=== PATIENT | male | born 1940 | race Two or more races ===

== ENCOUNTER 2020-02-22 20:29 | Inpatient (IN) | payer MEDICARE, OTHER ==
[~2020-02-22] VITALS: Ht 182.9 cm; Wt 67.6 kg
[~2020-02-22 20:29] MED LIST: AMLO10TA80 MT; BIMA2.5D4 EACHEYE; BRIM10DR2 EACHEYE; BRIM5DRO6 EACHEYE; CHOL400T31; CLON0.1T14 MT; CLOP-31 MT; FERR236T3 MT; POLY15DR31 EACHEYE
[2020-02-22] MEDS ORDERED: SODIUM CHLORIDE 0.9% 1,000 ML IV ONE (21:30)
[2020-02-22 21:57] LABS: BG BASE EXCESS -3.4 mmol/L (-2.0-2.0); BG CARBOXYHEMOGLOBIN 0.5 % (0.5-1.5); BG FRACTION INSPIRED OXYGEN 21; BG HCO3 ACT 21.3 mmol/L (22.0-26.0); BG METHEMOGLOBIN 0.3 % (0.0-1.5); BG OXYHEMOGLOBIN 94.2 % (94.0-97.0); BG PCO2 37.1 mmHg (35.0-45.0); BG PH 7.376 (7.350-7.450); BG PO2 78.2 mmHg (75.0-100.0); BG SAMPLE SITE LEFT RADIAL; BG VENT MODE ROOM AIR
[2020-02-22 22:41] LABS: HEMATOCRIT. 35.2 % (42.0-52.0); MEAN CORPUSCULAR HEMOGLOBIN 22.8 pg (28.0-32.0); MEAN CORPUSCULAR VOLUME 72.8 fL (80.0-94.0); MEAN PLATELET VOLUME 8.4 fl (7.4-10.4); PLATELET 242 x1000/uL (130-400); RED BLOOD CELL COUNT 4.83 mill/uL (4.7-6.1); RED CELL DISTRIBUTION WIDTH 17.9 % (11.6-14.6)
[2020-02-22 22:45] LABS: CHLORIDE 119 mEq/L (98-107)
[2020-02-22] MEDS ORDERED: HYDRALAZINE 20MG/ML VIAL IV ONE (22:45)
[2020-02-22 22:46] LABS: PROTHROMBIN TIME 10.4 sec (9.6-11.0)
[2020-02-22 22:49] LABS: ETHANOL BLOOD < 10 mg/dL
[2020-02-22 23:16] LABS: PLATELET ESTIMATE NORMAL
[2020-02-23] VITALS (60 sets, daily range): BP systolic 109–169; BP diastolic 35–110
[2020-02-23] MEDS ORDERED: INSULIN REGULAR (HUMULIN R) 300UNITS/3ML VIAL SUBCUT ONE
[2020-02-23 01:35] LABS: CLARITY URINE CLEAR (CLEAR); COLOR URINE YELLOW (YELLOW); KETONES URINE TRACE (NEGATIVE); LEUKOCYTE ESTERASE URINE TRACE (NEGATIVE); NITRITE URINE NEGATIVE (NEGATIVE); OCCULT BLOOD URINE 1+ (NEGATIVE); PROTEIN URINE 2+ (NEGATIVE); SPECIFIC GRAVITY URINE 1.019 (1.005-1.030); UROBILINOGEN URINE 0.2 E.U./dL (0.2-1.0)
[2020-02-23] MEDS ORDERED: NICARDIPINE 50 MG in SODIUM CHLORIDE 0.9% 230 ML IV PRN ×5 (01:45→09:00)
[2020-02-23 01:52] LABS: *AMPHETAMINES SCREEN URINE NEGATIVE (NEGATIVE)
[2020-02-23 01:53] LABS: *BARBITURATES SCREEN URINE NEGATIVE (NEGATIVE); *BENZODIAZEPINES SCREEN URINE NEGATIVE (NEGATIVE); *COCAINE SCREEN URINE NEGATIVE (NEGATIVE); CANNABINOID URINE SCREEN NEGATIVE (NEGATIVE); METHADONE URINE SCREEN NEGATIVE (NEGATIVE); OPIATES URINE SCREEN PRESUMTIVE POSITIVE (NEGATIVE); PHENCYCLIDINE URINE SCREEN NEGATIVE (NEGATIVE)
[2020-02-23] MEDS ORDERED: MANNITOL 12.5G (25%) VIAL 50ML IV ONE (02:00)
[2020-02-23] MEDS ORDERED: LEVETIRACETAM 500MG PREMIX 100 ML IV ONE (02:00)
[2020-02-23] MEDS ORDERED: DEXAMETHASONE 4MG/ML 1ML VIAL IV ONE (02:00)
[2020-02-23] MEDS ORDERED: LABETALOL 5MG/ML SYR 20 MG/4 ML SYRINGE IV ONE (03:15)
[2020-02-23] MEDS: NICARDIPINE 50 MG in SODIUM CHLORIDE 0.9% 230 ML IV PRN ×2 (04:45→05:33)
[2020-02-23] MEDS ORDERED: DOCUSATE SODIUM 100MG CAPSULE PO PRN (06:45)
[2020-02-23] MEDS ORDERED: LORAZEPAM 2MG/ML CPJ IV PRN (06:45)
[2020-02-23] MEDS ORDERED: ONDANSETRON HCL 4MG/2ML INJ IV PRN (06:45)
[2020-02-23] MEDS ORDERED: HYDROCODONE/ACETAMINOPHEN 10/325MG TABLET PO PRN (06:45)
[2020-02-23] MEDS ORDERED: DIPHENHYDRAMINE 50MG/ML VIAL IV PRN (06:45)
[2020-02-23] MEDS ORDERED: ACETAMINOPHEN 325MG TABLET PO PRN (06:45)
[2020-02-23] MEDS ORDERED: CLONIDINE 0.1MG TABLET PO PRN (06:45)
[2020-02-23] MEDS ORDERED: GUAIFENESIN 200MG/10ML SUGAR FREE UDC PO PRN (06:45)
[2020-02-23] MEDS ORDERED: DEXTROSE 50% WATER 50ML SYRINGE IV PRN ×2 (06:45→20:30)
[2020-02-23] MEDS ORDERED: MORPHINE SULFATE 2 MG/ML CPJ (NOT FOR IM USE) IV PRN (06:45)
[2020-02-23] MEDS ORDERED: HYDRALAZINE 20MG/ML VIAL IV PRN (06:45)
[2020-02-23] MEDS ORDERED: MAGNESIUM/ALUMINUM HYDROXIDE/SIMETHICONE 30ML UDC PO PRN (06:45)
[2020-02-23] MEDS ORDERED: IPRATROPIUM/ALBUTEROL 0.5-3(2.5)MG/3ML NEB NEB PRN (06:45)
[2020-02-23] MEDS ORDERED: NA PHOS,M-B/NA PHOS,DI-BA ENEMA 118ML PR PRN (06:45)
[2020-02-23] MEDS ORDERED: NICARDIPINE 100 MG in SODIUM CHLORIDE 0.9% 60 ML IV PRN (08:45)
[2020-02-23] MEDS: DEXAMETHASONE 4MG/ML 1ML VIAL IV SCH ×3 (12:00→23:21)
[2020-02-23] MEDS ORDERED: LIDOCAINE HCL 1% 20ML VIAL (Pyxis) INJ ONE (12:46)
[2020-02-23] MEDS ORDERED: SODIUM BICARBONATE 4% (2.4MEQ) 5ML VIAL IV ONE (12:46)
[2020-02-23] MEDS: INSULIN LISPRO 100 UNITS/ML SUBCUT SCH ×3 (13:00→23:21)
[2020-02-23] MEDS: BLOOD SUGAR DIAGNOSTIC STRIP TEST SCH ×4 (13:14→23:21)
[2020-02-23] MEDS: SODIUM CHLORIDE 0.9% INJ 3ML FLUSH IVF SCH ×2 (13:42→22:30)
[2020-02-23] MEDS: SODIUM CHLORIDE 0.9% 1,000 ML IV SCH (14:30)
[2020-02-23] MEDS: NICARDIPINE 100 MG in SODIUM CHLORIDE 0.9% 100 ML IV PRN ×2 (14:48→19:58)
[2020-02-23] MEDS ORDERED: ALBUTEROL 6.7GM HFA INHALER ORI PRN (17:00)
[2020-02-23 17:14] LABS: CREATINE KINASE MB FRACTION 2.3 ng/mL (0.5-3.6)
[2020-02-23 18:23] LABS: T4 FREE 1.24 ng/dL (0.76-1.46)
[2020-02-23] MEDS ORDERED: LEVETIRACETAM 500MG PREMIX 100 ML IV SCH (21:00)
[2020-02-23] MEDS: LEVETIRACETAM 500MG PREMIX 100 ML IV SCH (22:00)
[2020-02-23 23:18] LABS: CREATINE KINASE MB FRACTION 1.9 ng/mL (0.5-3.6)
[2020-02-24] VITALS (88 sets, daily range): BP systolic 91–142; BP diastolic 40–83
[2020-02-24] MEDS: MORPHINE SULFATE 2 MG/ML CPJ (NOT FOR IM USE) IV PRN (04:07)
[2020-02-24] MEDS: INSULIN LISPRO 100 UNITS/ML SUBCUT SCH ×4 (05:42→23:45)
[2020-02-24] MEDS: SODIUM CHLORIDE 0.9% INJ 3ML FLUSH IVF SCH ×3 (05:50→22:00)
[2020-02-24] MEDS: BLOOD SUGAR DIAGNOSTIC STRIP TEST SCH ×4 (05:50→23:38)
[2020-02-24] MEDS: DEXAMETHASONE 4MG/ML 1ML VIAL IV SCH ×2 (05:50→12:00)
[2020-02-24 06:57] LABS: HEMATOCRIT. 36.2 % (42.0-52.0); MEAN CORPUSCULAR HEMOGLOBIN 22.3 pg (28.0-32.0); MEAN PLATELET VOLUME 8.6 fl (7.4-10.4); PLATELET 238 x1000/uL (130-400); RED BLOOD CELL COUNT 4.96 mill/uL (4.7-6.1); RED CELL DISTRIBUTION WIDTH 17.9 % (11.6-14.6)
[2020-02-24] MEDS: SODIUM CHLORIDE 0.9% 1,000 ML IV SCH (07:10)
[2020-02-24 07:38] LABS: CHLORIDE 126 mEq/L (98-107)
[2020-02-24] MEDS: SODIUM CHLORIDE 0.45% 1,000 ML IV SCH ×2 (08:45→23:44)
[2020-02-24] MEDS: LEVETIRACETAM 500MG PREMIX 100 ML IV SCH ×2 (09:00→20:23)
[2020-02-24 12:45] LABS: NUCLEATED RED BLOOD CELLS 1 /100 WBC; PLATELET ESTIMATE NORMAL
[2020-02-24] MEDS: NICARDIPINE 100 MG in SODIUM CHLORIDE 0.9% 100 ML IV PRN (13:38)
[2020-02-24 20:57] LABS: BG BASE EXCESS -6.3 mmol/L (-2.0-2.0); BG CARBOXYHEMOGLOBIN 0.3 % (0.5-1.5); BG FRACTION INSPIRED OXYGEN 44; BG HCO3 ACT 17.6 mmol/L (22.0-26.0); BG METHEMOGLOBIN 0.3 % (0.0-1.5); BG OXYGEN SATURATION 89.9 % (92.0-98.5); BG OXYHEMOGLOBIN 89.4 % (94.0-97.0); BG PCO2 29.7 mmHg (35.0-45.0); BG PO2 59.7 mmHg (75.0-100.0); BG SAMPLE SITE LEFT FEMORAL; BG TOTAL HEMOGLOBIN 11.3 g/dL (12.0-18.0); BG VENT MODE NASAL CANNULA
[2020-02-25] VITALS (100 sets, daily range): BP systolic 40–164; BP diastolic 20–101
[2020-02-25] MEDS: BLOOD SUGAR DIAGNOSTIC STRIP TEST SCH ×3 (05:09→18:00)
[2020-02-25] MEDS: SODIUM CHLORIDE 0.9% INJ 3ML FLUSH IVF SCH ×3 (05:10→21:35)
[2020-02-25] MEDS: NICARDIPINE 100 MG in SODIUM CHLORIDE 0.9% 100 ML IV PRN (05:10)
[2020-02-25] MEDS: INSULIN LISPRO 100 UNITS/ML SUBCUT SCH ×3 (05:31→18:00)
[2020-02-25 08:23] LABS: HEMATOCRIT. 38.3 % (42.0-52.0); HEMOGLOBIN. 11.8 g/dL (14.0-18.0); MEAN CORPUSCULAR HEMOGLOBIN 22.6 pg (28.0-32.0); MEAN CORPUSCULAR VOLUME 73.4 fL (80.0-94.0); PLATELET 190 x1000/uL (130-400); RED BLOOD CELL COUNT 5.22 mill/uL (4.7-6.1)
[2020-02-25] MEDS: LEVETIRACETAM 500MG PREMIX 100 ML IV SCH ×2 (08:33→21:36)
[2020-02-25] MEDS: DEXAMETHASONE 6MG TABLET PO SCH (08:33)
[2020-02-25] MEDS: DEXT 5%/0.2% NACL 1,000 ML IV SCH (10:00)
[2020-02-25] MEDS ORDERED: LIDOCAINE HCL 1% 20ML VIAL (Pyxis) INJ ONE (10:47)
[2020-02-25] MEDS: INSULIN GLARGINE UD 100 UNITS/ML SYR SUBCUT SCH (11:59)
[2020-02-25 17:03] LABS: NUCLEATED RED BLOOD CELLS 1 /100 WBC
[2020-02-25 17:04] LABS: PLATELET ESTIMATE NORMAL
[2020-02-25] MEDS ORDERED: ATROPINE SULFATE 1MG/10ML SYR ONE (17:07)
[2020-02-25] MEDS ORDERED: SODIUM BICARBONATE 8.4% 1 MEQ/ML 50ML SYR IV ONE ×2 (17:16→17:17)
[2020-02-25] MEDS ORDERED: PHENYLEPHRINE 100 MG in DEXT 5% WATER 240 ML IV PRN ×2 (17:30→22:00)
[2020-02-25] MEDS ORDERED: NOREPINEPHRINE 8 MG in DEXT 5% WATER 242 ML IV PRN (17:30)
[2020-02-25 18:53] LABS: BG BASE EXCESS -15.7 mmol/L (-2.0-2.0); BG DEOXYHEMOGLOBIN 1.4 % (0.0-5.0); BG FRACTION INSPIRED OXYGEN 100; BG HCO3 ACT 13.8 mmol/L (22.0-26.0); BG METHEMOGLOBIN 0.6 % (0.0-1.5); BG OXYGEN SATURATION 98.6 % (92.0-98.5); BG PCO2 47.9 mmHg (35.0-45.0); BG PH 7.078 (7.350-7.450); BG PO2 196.5 mmHg (75.0-100.0); BG SAMPLE SITE LEFT BRACHIAL; BG TOTAL HEMOGLOBIN 11.5 g/dL (12.0-18.0); BG TOTAL RESPIRATORY RATE 26 b/min; BG VENT MODE VENT - AC
[2020-02-25] MEDS ORDERED: SODIUM BICARBONATE 8.4% 1 MEQ/ML 50ML SYR IV NR (21:15)
[2020-02-25] MEDS ORDERED: VASOPRESSIN 20 UNIT in SODIUM CHLORIDE 0.9% 99 ML IV PRN (23:00)
[2020-02-26] VITALS (57 sets, daily range): BP systolic 73–152; BP diastolic 37–64
[2020-02-26] MEDS: BLOOD SUGAR DIAGNOSTIC STRIP TEST SCH ×3 (00:15→12:00)
[2020-02-26] MEDS: INSULIN LISPRO 100 UNITS/ML SUBCUT SCH ×3 (00:54→13:18)
[2020-02-26] MEDS: MORPHINE SULFATE 2 MG/ML CPJ (NOT FOR IM USE) IV PRN (02:47)
[2020-02-26] MEDS ORDERED: MIDAZOLAM HCL 100 MG in DEXT 5% WATER 80 ML IV PRN (03:00)
[2020-02-26] MEDS ORDERED: FENTANYL CITRATE/PF 2,500 MCG in SODIUM CHLORIDE 0.9% 200 ML IV PRN (03:00)
[2020-02-26 04:02] LABS: BG BASE EXCESS -14.7 mmol/L (-2.0-2.0); BG CARBOXYHEMOGLOBIN 0.3 % (0.5-1.5); BG DEOXYHEMOGLOBIN 18.4 % (0.0-5.0); BG FRACTION INSPIRED OXYGEN 100; BG HCO3 ACT 14.7 mmol/L (22.0-26.0); BG METHEMOGLOBIN 0.2 % (0.0-1.5); BG OXYGEN SATURATION 81.5 % (92.0-98.5); BG OXYHEMOGLOBIN 81.1 % (94.0-97.0); BG PCO2 48.9 mmHg (35.0-45.0); BG PH 7.096 (7.350-7.450); BG PO2 59.7 mmHg (75.0-100.0); BG TOTAL HEMOGLOBIN 11.7 g/dL (12.0-18.0); BG VENT MODE VENT - AC
[2020-02-26] MEDS: DEXT 5%/0.2% NACL 1,000 ML IV SCH (04:13)
[2020-02-26] MEDS ORDERED: SODIUM BICARBONATE 8.4% 1 MEQ/ML 50ML SYR IV SCH ×2 (05:30→10:00)
[2020-02-26] MEDS: SODIUM CHLORIDE 0.9% INJ 3ML FLUSH IVF SCH ×2 (05:51→13:18)
[2020-02-26] MEDS: NOREPINEPHRINE 8 MG in DEXT 5% WATER 242 ML IV PRN ×2 (05:53→13:19)
[2020-02-26 08:18] LABS: BASOPHILS % 0.1 % (0.0-2.0); EOSINOPHILS % 0.8 % (0.0-5.0); HEMATOCRIT. 36.3 % (42.0-52.0); HEMOGLOBIN. 11.2 g/dL (14.0-18.0); LYMPHOCYTES % 9.9 % (20.0-50.0); MEAN CORPUSCULAR HEMOGLOBIN 22.4 pg (28.0-32.0); MEAN CORPUSCULAR VOLUME 72.6 fL (80.0-94.0); MONOCYTES % 1.7 % (2.0-8.0); NEUTROPHILS % 87.5 % (40.0-76.0)
[2020-02-26] MEDS: CITRIC ACID/SODIUM CITRATE SOLN 30ML UDC NG SCH ×2 (10:16→13:17)
[2020-02-26] MEDS: LEVETIRACETAM 500MG PREMIX 100 ML IV SCH (10:17)
[2020-02-26] MEDS: DEXAMETHASONE 6MG TABLET PO SCH (10:18)
[2020-02-26] MEDS: INSULIN GLARGINE UD 100 UNITS/ML SYR SUBCUT SCH (10:19)
[2020-02-26] MEDS ORDERED: PIPERACILLIN/TAZOBACTAM 3.375 G in DEXT 5% WATER 100 ML IV SCH (12:00)
[2020-02-26 12:44] LABS: BG BASE EXCESS 3.2 mmol/L (-2.0-2.0); BG CARBOXYHEMOGLOBIN 0.3 % (0.5-1.5); BG DEOXYHEMOGLOBIN 22.4 % (0.0-5.0); BG FRACTION INSPIRED OXYGEN 100; BG HCO3 ACT 29.2 mmol/L (22.0-26.0); BG METHEMOGLOBIN 0.3 % (0.0-1.5); BG OXYGEN SATURATION 77.5 % (92.0-98.5); BG PCO2 51.2 mmHg (35.0-45.0); BG PH 7.374 (7.350-7.450); BG PO2 45.6 mmHg (75.0-100.0); BG SAMPLE SITE RIGHT RADIAL; BG TOTAL HEMOGLOBIN 10.7 g/dL (12.0-18.0); BG TOTAL RESPIRATORY RATE 31 b/min; BG VENT MODE VENT - AC
[2020-02-26] MEDS ORDERED: PIPERACILLIN/TAZOBACTAM 2.25 G in DEXTROSE 5% WATER 50 ML IV SCH (14:00)
[2020-02-26] MEDS ORDERED: VANCOMYCIN 1250MG in DEXTROSE 5% WATER 250ML IV NR (14:00)
[2020-02-26 16:04] LABS: MEAN PLATELET VOLUME 9.1 fl (7.4-10.4); PLATELET 72 x1000/uL (130-400)
== END 2020-02-26 15:43 | disposition expired | DRG 871 ==
LOC: ER 20:29 → EDBEDREQDT 02-23 00:42 → EDBEDREQTM 02-23 00:42 → EDBEDREQ 02-23 00:42 → 5EST 02-23 01:44 → EDBEDREQTM 02-23 01:46 → EDBEDREQSVC 02-23 01:46 → EDBEDREQ 02-23 01:46 → ENRESERV 02-23 08:42
PROVIDERS: ADMIT Internal Medicine; ATTEND Internal Medicine
PROC: 02HV33Z Insertion of Infusion Device into Superior Vena Cava, Percutaneous Approach (ICD-10-PCS; principal; 2020-02-23)
PROC: B548ZZA Ultrasonography of Superior Vena Cava, Guidance (ICD-10-PCS; 2020-02-23)
PROC: 02HV33Z Insertion of Infusion Device into Superior Vena Cava, Percutaneous Approach (ICD-10-PCS; 2020-02-25)
PROC: B548ZZA Ultrasonography of Superior Vena Cava, Guidance (ICD-10-PCS; 2020-02-25)
PROC: 5A12012 Performance of Cardiac Output, Single, Manual (ICD-10-PCS; 2020-02-25)
PROC: 0BH17EZ Insertion of Endotracheal Airway into Trachea, Via Natural or Artificial Opening (ICD-10-PCS; 2020-02-25)
PROC: 5A1935Z Respiratory Ventilation, Less than 24 Consecutive Hours (ICD-10-PCS; 2020-02-25)
PROC: 5A1D70Z Performance of Urinary Filtration, Intermittent, Less than 6 Hours Per Day (ICD-10-PCS; 2020-02-26)
DX: A41.89 Other specified sepsis (principal); I61.0 Nontraumatic intracerebral hemorrhage in hemisphere, subcortical; J12.82 Pneumonia due to coronavirus disease 2019; N18.6 End stage renal disease; U07.1 COVID-19; I61.5 Nontraumatic intracerebral hemorrhage, intraventricular; J80 Acute respiratory distress syndrome; R65.21 Severe sepsis with septic shock; G92 Toxic encephalopathy; E87.0 Hyperosmolality and hypernatremia; E87.1 Hypo-osmolality and hyponatremia; I12.0 Hypertensive chronic kidney disease with stage 5 chronic kidney disease or end stage renal disease; I16.1 Hypertensive emergency; E87.2 Acidosis; J98.11 Atelectasis; E44.0 Moderate protein-calorie malnutrition; N17.9 Acute kidney failure, unspecified; D64.9 Anemia, unspecified; E11.22 Type 2 diabetes mellitus with diabetic chronic kidney disease; E11.65 Type 2 diabetes mellitus with hyperglycemia; E86.1 Hypovolemia; E87.5 Hyperkalemia; M48.00 Spinal stenosis, site unspecified; I46.9 Cardiac arrest, cause unspecified; Z66 Do not resuscitate; Z79.899 Other long term (current) drug therapy; Z99.2 Dependence on renal dialysis; Z82.49 Family history of ischemic heart disease and other diseases of the circulatory system; Z86.73 Personal history of transient ischemic attack (TIA), and cerebral infarction without residual deficits; Z68.20 Body mass index [BMI] 20.0-20.9, adult
CPT/HCPCS: 36415; 36556; 36600; 71045; 76937; 80048; 80053; 80061; 80305; 80320; 81003; 82140; 82375; 82550; 82553; 82805; 82962; 83036; 83880; 84439; 84443; 84484; 85025; 85379; 87077; 87186; 87426; 87635; 93005; 93306; 93970; 96372; 99291; C1725; C1752; C1769; C1893; J0360; J0461; J1100; J1815; J1953; J2150; J2270; J2370; J2543; J3370; J3490; J7030; J7050; J7060; A4315; G0480